=== PATIENT | male | born 1945 ===

== ENCOUNTER 2018-12-18 04:25 | Emergency (ER) | payer MEDICARE, OTHER ==
[2018-12-18 04:25] VITALS: BMI 29.2
--- NOTE | 2018-12-18 04:38 | C.PDOC ---
Time Seen by Provider: 12/18/18 04:37 Past Medical History - Medical History PMH: Arthritis Denies: Chronic Kidney Disease Disposition Counseled Patient/Family Regarding: Studies Performed, Diagnosis - Disposition Disposition Time: 04:38
[2018-12-18] MEDS ORDERED: Albuterol-Ipratrop 3 mg / 0.5 (3 ml) UD ONE (09:45)
== END 2018-12-18 04:39 | disposition left against medical advice (07) ==
LOC: C.ER 04:25
DX: Z02.89 Encounter for other administrative examinations (principal)